=== PATIENT | male | born 1990 | race Caucasian/White ===

== ENCOUNTER 2019-04-26 07:57 | Day surgery (SDC) | payer OTHER ==
[~2019-04-26] VITALS: Ht 182.9 cm; Wt 119.7 kg
[~2019-04-26 07:57] MED LIST: DEXTROAMP-AMPHE20 MG PO; PROAIR HFA8.5 GM INH; SYMBICORT160 MCG/4. INH; VENTOLIN HFA 1818 GM INH
[2019-04-26 09:18] VITALS: BP 111/73
[2019-04-26] MEDS ORDERED: IBUPROFEN 200200 M1 PO (11:13)
[2019-04-26] MEDS ORDERED: ACETAMINOPHEN325 M1 PO (11:14)
[2019-04-26] MEDS ORDERED: CLEOCIN HCL150 MG PO (11:19)
[2019-04-26 11:38] VITALS: BP 111/73
== END 2019-04-26 11:43 | disposition home or self-care (01) ==
LOC: OR 07:57 → TBA 07:58 → OR 10:29
DX: L05.01 Pilonidal cyst with abscess (principal); J45.909 Unspecified asthma, uncomplicated; F17.210 Nicotine dependence, cigarettes, uncomplicated; Z90.49 Acquired absence of other specified parts of digestive tract; Z98.890 Other specified postprocedural states; Z79.899 Other long term (current) drug therapy; Z88.0 Allergy status to penicillin
CPT/HCPCS: 50010; 50101; 50386; 50403; 62110; 62900; 70005